=== PATIENT | male | born 1965 | race Caucasian/White ===

== ENCOUNTER 2020-11-30 13:49 | Emergency (ER) | payer OTHER, SELFPAY ==
--- NOTE | ~2020-11-30 | XR_ITS ---
EXAMINATION: XR chest 2V 11/30/2020 14:53 INDICATION: Cough. Covid Positive. PROCEDURE: 2 view chest COMPARISON: No prior studies for comparison. FINDINGS: The lungs are clear. The cardiomediastinal silhouette is within normal limits. There are no pleural effusions. There is no pneumothorax suspected. IMPRESSION: 1: NO ACUTE CARDIOPULMONARY DISEASE. Reviewed, dictated and finalized at location A. [employer]
--- NOTE | 2020-11-30 13:55 | PC.NURSE ---
ATTEMPTED TO CALL PT AT [phone] TO TRIAGE AND GOT ANSWERING MACHINE AND MESSAGE LEFT TO CALL BACK.
[2020-11-30 14:05] VITALS: BP 129/77; PULSE 96; RESP 20; TEMP 37.1; O2SAT 97
--- NOTE | 2020-11-30 14:45 | ED.GENADULT ---
HPI - General Adult General Chief complaint: Upper Respiratory Infection Stated complaint: chills, fatique diarreha Source: patient Mode of arrival: ambulatory Limitations: no limitations History of Present Illness HPI narrative: Patient presents for evaluation of fatigue for the last 6 days. Today he experienced fever and sweating. He has experienced an intermittent nonproductive cough and diarrhea. He denies any shortness of breath, nausea, vomiting. No recent sick contacts. He does not smoke. He has been alternating Tylenol and ibuprofen with some improvement in his symptoms or after. Related Data Home Medications Medication Instructions Recorded Confirmed amlodipine 10 mg PO DAILY 11/30/20 11/30/20 hydrochlorothiazide 25 mg PO DAILY 11/30/20 11/30/20 Allergies Allergy/AdvReac Type Severity Reaction Status Date / Time No Known Allergies Allergy Verified 11/30/20 14:35 Review of Systems Review of Systems: Narrative: CONSTITUTIONAL: Reports fever, fatigue and sweats. Denies chills EYES: Denies visual changes, redness, or discharge. ENT: Denies rhinorrhea, congestion, sore throat, or otalgia. CARDIOVASCULAR: Denies chest pain, palpitations, or edema. RESPIRATORY: Reports cough. Denies dyspnea. GASTROINTESTINAL: Reports diarrhea. Denies abdominal pain, nausea, vomiting. GENITOURINARY: Denies dysuria or hematuria. SKIN: Denies rash or itching. MUSCULOSKELETAL: Denies back pain, joint pain, or myalgia. NEUROLOGIC: Denies headache, numbness, dizziness. PSYCHIATRIC: Denies anxiety or depression. [facility] Past Medical History Medical History (Updated 11/30/20 @ 15:01 by MICHAELA Garcia, ) Hypertension Obesity Surgical History Surgical History No pertinent past surgical history Family History Family History Father Esophageal cancer Mother Colon cancer Social History Social History (Updated 11/30/20 @ 14:48 by MICHAELA Garcia, ) Smoking status: Never smoker Alcohol intake: current Alcohol use details: socially Substance use: never Living arrangements: with family Gender identity (if verbalized by the patient): Male Sexual Orientation (if Verbalized by the Patient): Straight or Heterosexual Spiritual care concerns: No Exam Narrative: Exam Narrative: GENERAL: Well-appearing, well-nourished, and in no acute distress. HEAD: Normocephalic, atraumatic. EYES: PERRLA and EOMI. ENT: Nares clear, no rhinorrhea or epistaxis. Mucous membranes moist. Oropharynx without tonsillar hypertrophy exudate or other lesions. Bilateral TMs pearly rivera nonbulging NECK: Supple. No adenopathy or masses. No carotid bruits or JVD CHEST: Clear to auscultation. No respiratory distress. No wheezes rales or rhonchi HEART: Regular rate and rhythm. No murmur heard. Normal peripheral pulses. ABDOMEN: Soft, nontender, nondistended, normal active bowel sounds. EXTREMITIES: Normal range of motion. No edema. SKIN: Warm, dry, no rash. NEURO: No focal deficits. Alert and oriented x3. PSYCH: Normal mood and affect. Course Course Emergency Course: 55-year-old male with 6-day history of fatigue presented with mild cough. He is nontoxic-appearing. Vital signs were stable. He did have a rapid Covid test which was positive. Chest x-ray showed no acute cardiopulmonary disease. Advised on quarantine recommendations, [id number] medications to assist with symptoms, increased hydration and rest. Should seek emergent medical care for shortness of breath, chest pain or declining condition. Vital Signs Vital signs: Vital Signs Temperature 37.1 C 11/30/20 14:05 Pulse Rate 96 11/30/20 14:05 Respiratory Rate 20 11/30/20 14:05 Blood Pressure 129/77 11/30/20 14:05 Pulse Oximetry 97 11/30/20 14:05 Temperature 37.1 C 11/30/20 14:05 Pulse Rate 96 11/30/20 1
== END 2020-11-30 15:05 | disposition home or self-care (01) ==
PROVIDERS: Emergency Provider Nurse Practitioner
DX: U07.1 COVID-19 (principal); I10 Essential (primary) hypertension
CPT/HCPCS: 71046; 87426; 99203; C9803; G0463

== ENCOUNTER 2022-05-18 11:37 | Emergency (ER) | payer OTHER, SELFPAY ==
[2022-05-18 11:44] VITALS: BP 141/75; PULSE 105; RESP 20; TEMP 36.8; O2SAT 97
--- NOTE | 2022-05-18 12:10 | ED.URI ---
HPI - URI/Sore Throat General Chief Complaint: Upper Respiratory Infection Stated Complaint: Fever, sore throat Time Seen by Provider: 05/18/22 12:12 Source: patient, RN notes reviewed and old records reviewed Mode of arrival: ambulatory Limitations: no limitations History of Present Illness HPI Narrative: 57-year-old male who presents to [facility] care with complaints of chills, felt feverish, scratchy throat and nasal congestion since yesterday Patient sates that he has been vaccinated and had Booster and also he had Covid in 2020, reports that he has not had influenza shot.Patient denies any cough or any shortness of breath. MD elicited complaint: fever (felt feverish and chills), sore throat and other (achy) Pertinent past history: other (COVID 11/2020) Onset (ago): day(s) (1) Pain scale (0-10): 6 Related Data Home Medications Medication Instructions Recorded Confirmed amlodipine 10 mg tablet 10 mg PO DAILY 11/30/20 05/18/22 hydrochlorothiazide 25 mg tablet 25 mg PO DAILY 11/30/20 05/18/22 Allergies Allergy/AdvReac Type Severity Reaction Status Date / Time No Known Allergies Allergy Verified 11/30/20 14:35 Review of Systems Review of Systems: CONSTITUTIONAL: Positive for fever, chills, or sweats. EYES: Denies visual changes, redness, or discharge. ENT: positive for rhinorrhea, congestion, sore throat, no otalgia. CARDIOVASCULAR: Denies chest pain, palpitations, or edema. RESPIRATORY: Denies cough or dyspnea. GASTROINTESTINAL: Denies abdominal pain, nausea, vomiting, or diarrhea. GENITOURINARY: Denies dysuria or hematuria. SKIN: Denies rash or itching. MUSCULOSKELETAL: Denies back pain, joint pain, body aches NEUROLOGIC: Denies headache, numbness, or weakness. PSYCHIATRIC: Denies anxiety or depression. All systems reviewed & are unremarkable except as noted in HPI and below PMFSH Past Medical History Medical History (Updated 05/20/22 @ 09:55 by Cristina Menon NP) COVID-19 11/2020 Hypertension Obesity Surgical History Surgical History No pertinent past surgical history Family History Family History Father Esophageal cancer Mother Colon cancer Social History Social History (Updated 11/30/20 @ 14:48 by Ulisses Lieberman, [facility], ) Smoking status: Never smoker Alcohol intake: current Alcohol use details: socially Substance use: never Gender identity (if verbalized by the patient): Male Sexual Orientation (if Verbalized by the Patient): Straight or Heterosexual Spiritual care concerns: No Comments At time of signature, agree with nursing past medical, surgical, social and family history. There is no relevant family history pertinent to the presenting complaint Exam Narrative: GENERAL: Well-appearing, well-nourished,obese and in no acute distress. HEAD: Normocephalic, atraumatic. EYES: PERRLA and EOMI. ENT: Nares with minimal redness, clear rhinorrhea no epistaxis. Mucous membranes moist.TM's normal with good light reflex, throat red, no lesions or exudates, no tonsil swelling. NECK: Supple.no lymphadenopathy CHEST: Clear to auscultation. No respiratory distress.SAO2 97% on room air, no cough noted, no tachypnea HEART: Regular rate and rhythm. No murmur heard. Normal peripheral pulses. ABDOMEN: Soft, nontender, nondistended, normal active bowel sounds. EXTREMITIES: Normal range of motion. No edema. SKIN: Warm, dry, no rash. NEURO: No focal deficits. Alert and oriented x3. Course Course Level of Care: Express Care Visit Vital Signs Vital signs: Vital Signs Temperature 36.8 C 05/18/22 11:44 Pulse Rate 105 H 05/18/22 11:44 Respiratory Rate 20 05/18/22 11:44 Blood Pressure 141/75 H 05/18/22 11:44 Pulse Oximetry 97 05/18/22 11:44 Oxygen Delivery Room Air 05/18/22 11:44 Temperature 36.8 C 05/18/22 11:44 Pulse Rate 105 H 05/18/22
== END 2022-05-18 12:35 | disposition home or self-care (01) ==
PROVIDERS: Emergency Provider Registered Nurse
DX: U07.1 COVID-19 (principal); I10 Essential (primary) hypertension; E66.9 Obesity, unspecified; Z68.41 Body mass index [BMI] 40.0-44.9, adult
CPT/HCPCS: 87426; 87804; 99213; C9803; G0463

== ENCOUNTER 2023-02-17 11:41 | Emergency (ER) | payer OTHER, SELFPAY ==
--- NOTE | ~2023-02-17 | XR_ITS ---
EXAMINATION: XR chest 2V DATE: 02/17/2023 12:33 INDICATION: Wheezing and cough. TECHNIQUE: Frontal and lateral views of the chest were obtained. COMPARISON: Chest 2 views 11/30/2020 FINDINGS: The chest demonstrates clear lungs without pneumonia, pleural effusion, or pneumothorax. Th e heart size is normal. IMPRESSION: 1. No acute cardiopulmonary disease. Reviewed, dictated and finalized at location A.
[2023-02-17 11:46] VITALS: BP 130/71; PULSE 89; RESP 16; TEMP 37.1; O2SAT 96
--- NOTE | 2023-02-17 11:59 | ED.URI ---
HPI - URI/Sore Throat General Chief Complaint: Upper Respiratory Infection Stated Complaint: upper respiratory Time Seen by Provider: 02/17/23 12:00 Source: patient and RN notes reviewed Mode of arrival: ambulatory Limitations: no limitations History of Present Illness HPI Narrative: 57-year-old male presented for complaint of head pressure, stating he feels like he is in a fog as well as nonproductive cough and chest tightness with occasional rattling/ wheezing over the last 2-3 days. Endorses feeling cold sweats last night. He states he cannot lie flat due to the increase in cough. He used an albuterol inhaler for symptoms, which he has had from previous COVID infection. He has not taken anything else for symptoms. He denies sick contacts. Denies shortness of breath, chest pain, palpitations, nausea, vomiting, dizziness. MD elicited complaint: cough Related Data Home Medications Medication Instructions Recorded Confirmed amlodipine 10 mg tablet 10 mg PO DAILY 11/30/20 02/17/23 hydrochlorothiazide 25 mg tablet 25 mg PO DAILY 11/30/20 02/17/23 Allergies Allergy/AdvReac Type Severity Reaction Status Date / Time No Known Allergies Allergy Verified 02/17/23 11:56 Review of Systems Review of Systems: CONSTITUTIONAL: Endorses malaise, chills, sweats, fever EYES: Denies visual changes, redness, or discharge ENT: Reports rhinorrhea, congestion, sinus pain, Denies otalgia, sore throat CARDIOVASCULAR: Denies chest pain, palpitations, edema RESPIRATORY: Reports cough, post nasal drainage. Denies dyspnea GASTROINTESTINAL: Denies abdominal pain, nausea, vomiting, diarrhea SKIN: Denies rash or itching MUSCULOSKELETAL: denies myalgia NEUROLOGIC: Reports headache PMFSH Past Medical History Medical History COVID-19 11/2020 Hypertension Obesity Surgical History Surgical History No pertinent past surgical history Family History Family History Father Esophageal cancer Mother Colon cancer Social History Social History Smoking status: Never smoker Alcohol intake: current Alcohol use details: socially Substance use: never Living arrangements: with family Gender identity (if verbalized by the patient): Male Sexual Orientation (if Verbalized by the Patient): Straight or Heterosexual Spiritual care concerns: No Exam Narrative: GENERAL: mildly Ill-appearing, nontoxic EYES: PERRLA, conjunctivae clear ENT: Mucous membranes moist. nasal congestion. TM pearly rivera with dull light reflex bilaterally; no tragal tenderness. Oropharynx erythematous without lesions or exudate, no drooling, no hoarseness, no trismus, uvula midline. No tripod positioning, muffled voice, soft palate or pharyngeal wall bulging NECK: Supple. No lymphadenopathy CHEST: Clear to auscultation, breath sounds equal. No wheezing, rhonchi, rales, or stridor. No respiratory distress, speaks in full sentences. HEART: Regular rate and rhythm. No murmur heard. SKIN: Warm, dry, no rash. NEURO: Alert and oriented x3. PSYCH: Normal mood and affect Course Course Emergency Course: Patient is aware of diagnosis, understands and agrees to treatment plan. Anticipatory guidance given. Patient agrees to follow-up as directed and is aware of reasons to seek care at the emergency department. Portions of this record may have been created with voice recognition software Level of Care: Express Care Visit Vital Signs Vital signs: Vital Signs Temperature 98.7 F 02/17/23 11:46 Pulse Rate 89 02/17/23 11:46 Respiratory Rate 16 02/17/23 11:46 Blood Pressure 130/71 02/17/23 11:46 Pulse Oximetry 96 02/17/23 11:46 Oxygen Delivery Room Air 02/17/23 11:46 Temperature 98.7 F 02/17/23
== END 2023-02-17 12:55 | disposition home or self-care (01) ==
PROVIDERS: Emergency Provider Nurse Practitioner Family; PCP Family Medicine
DX: J40 Bronchitis, not specified as acute or chronic (principal); Z20.822 Contact with and (suspected) exposure to COVID-19; I10 Essential (primary) hypertension; E66.9 Obesity, unspecified; Z68.41 Body mass index [BMI] 40.0-44.9, adult; Z86.16 Personal history of COVID-19
CPT/HCPCS: 71046; 87081; 87426; 87880; 99213; C9803; G0463